=== PATIENT | female | born 1985 | race Caucasian/White ===

== ENCOUNTER 2017-09-29 20:35 | Emergency (ER) | payer MEDICAID ==
[~2017-09-29] VITALS: Ht 162.6 cm; Wt 70.4 kg
[~2017-09-29 20:35] MED LIST: CHLO473M2 PO; [UNRECOGNIZED DRUG - CODE] PO
[2017-09-29] MEDS ORDERED: HYDROcodone/acetaminophen 10/325mg tab PO ONE (21:45)
[2017-09-29] MEDS ORDERED: penicillin V potassium 500mg tablet PO ONE (21:45)
[2017-09-29] MEDS ORDERED: PENI500T2 PO (21:48)
[2017-09-29] MEDS ORDERED: IBUP-1985 PO (21:48)
[2017-09-29 21:59] VITALS: BP 126/80
== END 2017-09-29 22:00 | disposition home or self-care (01) ==
LOC: ER 20:36
DX: K02.9 Dental caries, unspecified (principal); Z98.890 Other specified postprocedural states; Z79.899 Other long term (current) drug therapy
CPT/HCPCS: 99283